=== PATIENT | female | born 1950 | race Caucasian/White ===

== ENCOUNTER → 2020-03-24 | Outpatient (CLI) | payer MEDICARE ==
--- NOTE | 2020-03-24 16:08 | RAD ---
INDICATION: Reason: RT LE PAIN / Spl. Instructions: / History: COMPARISON: April 2016 TECHNIQUE: Grayscale, color and doppler ultrasound images were obtained of the right lower extremity venous vasculature. RIGHT: No thrombus identified in the common femoral vein, femoral vein, popliteal vein. Limited assessment of the calf veins secondary to overlying structures obscuring. 43 x 33 x 20 mm complex fluid collection at the popliteal fossa as well as additional pocket of fluid at the medial right calf which extends for at least 8 x 2 cm IMPRESSION: * No deep vein thrombosis is seen. * Within the popliteal fossa there is a complex fluid collection which could be from Pittman's cyst or other causes such as seroma/hematoma in evolution. In addition there is a fluid collection in the calf which could be from seroma or hematoma in evolution but would also correlate with infectious symptoms given that a superinfection cannot be excluded on ultrasound. Electronically signed by: Milan Yost MD (03/24/2020 4:06 PM) [id number]
== END ==
LOC: US 15:19
PROVIDERS: ATTEND Family Medicine
DX: M71.21 Synovial cyst of popliteal space [Baker], right knee (principal)
CPT/HCPCS: 93971

== ENCOUNTER 2020-09-18 09:50 | Emergency (ER) | payer MEDICARE ==
[~2020-09-18] VITALS: Ht 162.6 cm; Wt 107.0 kg
[2020-09-18 09:54] VITALS: BP 159/103
[2020-09-18] MEDS ORDERED: IV NORMAL SALINE 500ML 500 ML IV ONE (10:15)
--- NOTE | 2020-09-18 10:20 | PHYS DOC ---
Past History Past Medical History: A-Fib, High Cholesterol, Hypertension Past Surgical History: Knee Replacement Alcohol Use: None General Adult EDM: Chief Complaint: KNEE INJURY HPI: HPI: 70-year-old female presents with left knee pain. The patient started to have pain last night around midnight. It got worse throughout the night and by 8 AM she needed a wheelchair to get around. She noticed that the knee is swollen and her left calf is swollen. She denies any falls or trauma. She has bilateral knee replacements. No history of long plane, train, or car rides. She is already on Eliquis. She had a similar, less severe episode of right knee swelling a year ago it was due to electrolyte imbalance and small effusion. It resolved without significant intervention. Today's episode came on faster and is more intense. She denies fever or chills. Denies shortness of breath, headache, or dizziness. Review of Systems: Review of Systems: Constitutional: Denies fever or chills Eyes: Denies change in visual acuity HENT: Denies nasal congestion or sore throat Respiratory: Denies cough or shortness of breath Cardiovascular: Denies chest pain or edema GI: Denies abdominal pain, nausea, vomiting, bloody stools or diarrhea : Denies dysuria Musculoskeletal: Left knee pain Integument: Denies rash Neurologic: Denies headache, focal weakness or sensory changes Endocrine: Denies polyuria or polydipsia Lymphatic: Denies swollen glands Psychiatric: Denies depression or anxiety Allergies: Allergies: Allergies Coded Allergies Type Severity Reaction Last Updated Verified cyclobenzaprine Allergy Unknown 09/18/20 Yes Physical Exam: PE: Constitutional: Well developed, well nourished, morbidly obese, no acute distress, non-toxic appearance. [] HENT: Normocephalic, atraumatic, bilateral external ears normal, oropharynx moist, no oral exudates, nose normal. [] Eyes: PERRLA, EOMI, conjunctiva normal, no discharge. [] Neck: Normal range of motion, no tenderness, supple, no stridor. [] Cardiovascular: Heart rate regular rhythm, no murmur [] Lungs & Thorax: Bilateral breath sounds clear to auscultation [] Abdomen: Bowel sounds normal, soft, no tenderness, no masses, no pulsatile mass es. [] Skin: Warm, dry, no erythema, no rash. [] Back: No tenderness, no CVA tenderness. [] Extremities: Anterior left knee tenderness, swelling, swelling of the left calf, tenderness of the posterior knee. Range of motion deferred at this time. [] Neurologic: Alert and oriented X 3, normal motor function, normal sensory function, no focal deficits noted. [] Psychologic: Affect normal, judgement normal, mood normal. [] Current Patient Data: Vital Signs: Vital Signs Date Time Temp Pulse Resp B/P (MAP) Pulse Ox O2 Delivery O2 Flow Rate FiO2 09/18/20 09:54 97.9 72 16 159/103 (121) 96 Room Air EKG: EKG: [] Radiology/Procedures: Radiology/Procedures: [] Impressions: US DPLX VENOUS EXTREMITY LOWER LT History: Reason: swollen knee, no trauma / Spl. Instructions: / History: Comparison: None. Discussion: Multiple longitudinal and transverse high resolution real-time images of the venous system of left lower extremity were obtained with color and Doppler sampling. The common femoral, superficial femoral, popliteal and proximal calf veins are all patent and demonstrate normal flow and compressibility. Normal respiratory phasicity and augmentation is present. Complicated left popliteal fossa cyst measures 5.9 x 2.5 x 2.4 cm. Impression: 1. No evidence of deep vein thrombosis. 2. Complicated left popliteal fossa cyst. Electronically signed by: Senthil Castillo DO (09/18/2020 11:01 AM) [employer] DICTATED AND SIGNED BY: SENTHIL CASTILLO DO DATE: 09/18/20 1100 CC: EWELINA HERNANDEZ DO; BAN MONTALVO MD ~MTH0 0 XR KNEE _3 VIEWS_LT History: Reason: Left swollen knee with pain / Spl. Instructions: / History: Technique: 3 views left knee Comparison: None. Findings: Left total knee arthroplasty. Normal alignment. No fracture. Moderate knee joint effusion. Impression: 1. Moderate left knee joint effusion. 2. Left total knee arthroplasty. Electronically signed by: Senthil Castillo DO (09/18/2020 11:11 AM) [employer] DICTATED AND SIGNED BY: SENTHIL CASTILLO DO DATE: 09/18/20 1109 CC: EWELINA HERNANDEZ DO; BAN MONTALVO MD ~MTH0 0 Heart Score: C/O Chest Pain: No Risk Factors: Risk Factors: DM, Current or recent (<one month) smoker, HTN, HLP, family history of CAD, obesity. Risk Scores: Score 0 - 3: 2.5% MACE over next 6 weeks - Discharge Home Score 4 - 6: 20.3% MACE over next 6 weeks - Admit for Clinical Observation Score 7 - 10: 72.7% MACE over next 6 weeks - Early Invasive Strategies Course & Med Decision Making: Course & Med Decision Making Pertinent Labs and Imaging studies reviewed. (See chart for details) Patient's ultrasound is negative for DVT. She does have a complex popliteal cyst. Moderate joint effusion. I have advised that she follow-up with orthopedics. Her labs are unremarkable. She is stable for discharge at this time. [] Dragon Disclaimer: Dragon Disclaimer: This electronic medical record was generated, in whole or in part, using a voice recognition dictation system. Departure Departure: Impression: Primary Impression: Rupture of popliteal cyst of left knee region Disposition: HOME / SELF CARE / HOMELESS Condition: STABLE Referrals: BAN MONTALVO MD (PCP) Patient Instructions: Pittman's Cyst EWELINA HERNANDEZ DO Sep 18, 2020 10:19
[2020-09-18 10:56] LABS: BASO % 1 % (0-3); EOS # 0.2 x10^3/uL (0.0-0.7); EOS % 2 % (0-3); HEMATOCRIT 42.8 % (36.0-47.0); HEMOGLOBIN 14.3 g/dL (12.0-15.5); LYMPH % 20 % (24-48); MEAN CORPUSCULAR HEMOGLOBIN 29 pg (25-35); MEAN CORPUSCULAR HGB CONC 33 g/dL (31-37); MEAN CORPUSCULAR VOLUME 87 fL (79-100); MONO # 0.6 x10^3/uL (0.0-1.1); MONO % 6 % (0-9); NEUT # 7.4 x10^3uL (1.8-7.7); NEUT % 72 % (31-73); PLATELET COUNT 228 x10^3/uL (140-400); RED BLOOD COUNT 4.93 x10^6/uL (3.50-5.40); RED CELL DISTRIBUTION WIDTH 14.3 % (11.5-14.5); WHITE BLOOD COUNT 10.2 x10^3/uL (4.0-11.0)
[2020-09-18 11:03] LABS: CALCIUM 9.6 mg/dL (8.5-10.1); CREATININE 1.1 mg/dL (0.6-1.0); POTASSIUM 3.6 mmol/L (3.5-5.1)
--- NOTE | 2020-09-18 11:03 | RAD ---
US DPLX VENOUS EXTREMITY LOWER LT History: Reason: swollen knee, no trauma / Spl. Instructions: / History: Comparison: None. Discussion: Multiple longitudinal and transverse high resolution real-time images of the venous system of left lo wer extremity were obtained with color and Doppler sampling. The common femoral, superficial femoral, popliteal and proximal calf veins are all patent and demonstrate normal flow and compressibility. No rmal respiratory phasicity and augmentation is present. Complicated left popliteal fossa cyst measures 5.9 x 2.5 x 2.4 cm. Impression: 1. No evidence of deep vein thrombosis. 2. Complicated left popliteal fossa cyst. Electronically signed by: Juanpablo Castillo DO (09/18/2020 11:01 AM) [facility]
[2020-09-18 11:08] LABS: ALBUMIN 3.6 g/dL (3.4-5.0); ALBUMIN/GLOBULIN RATIO 0.8 (1.0-1.7); TOTAL BILIRUBIN 0.4 mg/dL (0.2-1.0); TOTAL PROTEIN 8.1 g/dL (6.4-8.2)
--- NOTE | 2020-09-18 11:13 | RAD ---
XR KNEE _3 VIEWS_LT History: Reason: Left swollen knee with pain / Spl. Instructions: / History: Technique: 3 views left knee Comparison: None. Findings: Left total knee arthroplasty. Normal alignment. No fracture. Moderate knee joint effusion. Impression: 1. Moderate left knee joint effusion. 2. Left total knee arthroplasty. Electronically signed by: Juanpablo Castillo DO (09/18/2020 11:11 AM) [facility]
[2020-09-18] MEDS ORDERED: HYDR-2759 PO (11:34)
[2020-09-18] MEDS ORDERED: HYDROcodone/APAP 7.5/325MG 1 TAB TABLET PO ONE (11:45)
== END 2020-09-18 11:52 | disposition home or self-care (01) ==
LOC: ER 09:50
DX: M66.0 Rupture of popliteal cyst (principal); E78.00 Pure hypercholesterolemia, unspecified; I10 Essential (primary) hypertension; R22.42 Localized swelling, mass and lump, left lower limb; I48.91 Unspecified atrial fibrillation; Z96.652 Presence of left artificial knee joint; Z88.1 Allergy status to other antibiotic agents
CPT/HCPCS: 36415; 73562; 80053; 85025; 93971; 99285-25

== ENCOUNTER → 2021-02-13 | Outpatient (CLI) | payer MEDICARE ==
[~2021-02-13] MED LIST: HYDR-2759 PO
--- NOTE | 2021-02-13 16:03 | RAD ---
EXAM: Right foot, 3 views. HISTORY: Pain. COMPARISON: None. FINDINGS: 3 views of the right foot are obtained. There is hyperflexion and slight subluxation of the right second, third and fourth proximal interphalangeal joints. There is pes planus. There is mild t ibiotalar and midfoot spurring. There is no acute fracture. IMPRESSION: 1. Hyperflexion and slight subluxation of the right second through fourth proximal interphalangeal eloina ints. 2. Pes planus. 3. Mild midfoot and hindfoot osteoarthritis. Electronically signed by: Gabriela Oconnor MD (02/13/2021 4:01 PM) [id number]
== END ==
LOC: LAB 15:02
PROVIDERS: ATTEND Podiatrist Foot & Ankle Surgery
DX: M19.071 Primary osteoarthritis, right ankle and foot (principal); M21.41 Flat foot [pes planus] (acquired), right foot; M84.374A Stress fracture, right foot, initial encounter for fracture
CPT/HCPCS: 73630

== ENCOUNTER → 2021-04-05 | Day surgery (SDC) | payer MEDICARE ==
[~2021-04-05] MED LIST changes: +APIX5TAB3 PO; +ATOR10TA60 PO; +CHOL500021 PO; +MELA3TAB43 PO; +METO50TA29 PO; +PANT40TA6 PO; +POTA-121 PO
[2021-04-05 12:37] VITALS: BP 188/91
== END | disposition home or self-care (01) ==
LOC: SURG 11:13
PROVIDERS: ATTEND Anesthesiology
DX: M79.671 Pain in right foot (principal); M54.16 Radiculopathy, lumbar region; M19.90 Unspecified osteoarthritis, unspecified site; I48.91 Unspecified atrial fibrillation; Z79.899 Other long term (current) drug therapy; Z88.8 Allergy status to other drugs, medicaments and biological substances
CPT/HCPCS: 99204; G0463